=== PATIENT | female | born 1990 | race Caucasian/White ===

== ENCOUNTER 2023-11-29 09:55 | Emergency (ER) | payer OTHER, SELFPAY ==
[2023-11-29 10:00] VITALS: BP 114/83; PULSE 91; RESP 18; TEMP 36.6; O2SAT 98; BMI 36.5
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
--- NOTE | 2023-11-29 10:57 | XR_ITS ---
INDICATION: SMALL CANNOT ELATION, COUGH, SHORTNESS OF BREATH TECHNIQUE: TWO VIEW CHEST COMPARISON: NONE FINDINGS: LUNGS ARE CLEAR. MEDIASTINUM NORMAL. NO FRACTURE. IMPRESSION: NO ACUTE FINDINGS.
[2023-11-29 10:58] VITALS: RESP 18
== END 2023-11-29 12:47 | disposition home or self-care (01) ==
PROVIDERS: Emergency Provider Emergency Medicine
DX: J98.01 Acute bronchospasm (principal); T59.811A Toxic effect of smoke, accidental (unintentional), initial encounter; J70.5 Respiratory conditions due to smoke inhalation
CPT/HCPCS: 71046; 99283